=== PATIENT | male | born 1930 | race Caucasian/White ===

== ENCOUNTER → 2017-03-05 | Outpatient (CLI) | payer OTHER ==
[~2017-03-05] MED LIST: ALLERGY10 M2 PO; APAP500 PO; BYSTOLIC10 MG PO; CARDIZEM CD120 MG PO; CENTRUM SILVER1 EAC4 PO; CIALIS20 MG PO; COQ-10100 MG PO; COSAMIN DS CAP1 EAC1 PO; COUMADIN 5 MG TA5 MG PO; DEXILANT60 MG PO; FAMOTIDINE 20 M20 MG PO; FISH OIL 1,001000 M1 PO; HYDROCHLOROTHIA25 M1 PO; HYDROCODON-ACE1 EAC7 PO; IBUPROFEN 200200 M1 PO; JUVENON PO; LANOXIN 0.250.25 M1 PO; LORTAB 5-500 T1 EAC1 PO; MAGNESIUM400 MG PO; MOM PO; OXYCODONE-ACET1 EACH PO; PERCOCET 5-3251 EACH PO; POTASSIUM20 PO; RESTORIL15 MG PO; SINGULAIR 10 MG10 M1 PO; VALIUM5 MG PO; VITAMIN D1000 UNI1 PO
== END ==
LOC: CAT 10:07
DX: C34.12 Malignant neoplasm of upper lobe, left bronchus or lung (principal); Z90.2 Acquired absence of lung [part of]

== ENCOUNTER → 2018-04-08 | Outpatient (CLI) | payer OTHER ==
--- NOTE | 2018-04-11 09:28 | EXE ---
[facility] [email or web address] [address] STRESS ECHOCARDIOGRAM Name: EUFEMIA LEMOS Room #: REG Kevin#: [id number] Admission: 04/08/18 Attend Phys: Mio Ernandez, Discharge: Date of : 32 Date of Service: 04/11/18 0928 Report #: [id number] THIS REPORT FOR: //name// APPROVED REPORT Study performed: 04/08/2018 13:31:12 Exam: Stress Echocardiogram Indication: History of Afib Patient Location: Out-Patient Stress Nurse: Deena Evans RN Status: routine Ht: 5 ft 6 in HR: 51 bpm BP: 128/84 mmHg Rhythm: NSR Medical History Medical History: Atrial Fibrillation Medications: Listed on worksheet Allergies: No known drug allergies Cardiac Risk Factors: HTN, Hyperlipidemia Procedure The patient underwent an Exercise Stress Test using the Sacha Protocol. Blood pressure, heart rate, and EKG were monitored. An Echocardiogram was performed by instrument and control technician in four stages in quad fashion. At peak stress, four selected images were obtained and placed side by side with resting images for comparison. Stress Test Details Stress Test: Exercise stress testing was performed using a Sacha protocol. HR Resting HR: 51 bpm Max Heart Rate (APMHR): 134 bpm Max HR Achieved: 139 bpm Target HR (85% APMHR): 113 bpm % of APMHR: 103 Recovery HR: 61 bpm HR response to stress: Normal HR response to stress BP Resting BP: 128/84 mmHg [facility] [address] [place] [address] STRESS ECHOCARDIOGRAM Name: EUFEMIA LEMOS Room #: [facility]#: [id number] Admission: 04/08/18 Attend Phys: Mio Ernandez, Discharge: Date of : 32 Date of Service: 04/11/18927 Report #: [id number] Max BP: 190/102 mmHg Recovery BP: 128/80 mmHg BP response to stress: Normal blood pressure response to stress. ECG Clinical Reason for Termination: moderate fatigue, protocol completed Stress Symptoms: Dyspnea Exercise duration: 5 min 22 sec Exercise capacity: 7.20 METs Pre-Stress Echo The resting Echocardiogram showed normal left ventricular contractility with an estimated Ejection Fraction of about 55%. Mild mitral and aortic regurgitation noted. Post-Stress Echo The stress Echocardiogram showed normal left ventricular contractility with an estimated Ejection Fraction of about 60-65%. Conclusion Clinical Response: Non-ischemic Exercise Capacity: Average Stress ECG Response: Non-ischemic Stress Echo Images: Non-ischemic Other Information Study Quality: Adequate/lots of lung artifact pre and post <ELECTRONICALLY SIGNED> By: Mio Ernandez MD, FACC 04/11/1828 7 7 Mio Ernandez MD, FACC /INF
== END ==
LOC: CV 09:52
DX: I10 Essential (primary) hypertension (principal); I48.0 Paroxysmal atrial fibrillation; R06.09 Other forms of dyspnea

== ENCOUNTER → 2018-09-16 | Outpatient (CLI) | payer OTHER ==
[~2018-09-16] VITALS: Ht 162.6 cm; Wt 65.3 kg
[~2018-09-16] MED LIST changes: +CHLORTHALIDONE25 MG PO; +CRESTOR5 MG PO; +LOSARTAN POTAS100 MG PO; +RESTASIS1 EACH OPHTHALMIC
--- NOTE | 2018-09-17 10:22 | P ---
[facility] [place] [address] PROCEDURE REPORT Name: EUFEMIA LEMOS Room #: REG ZANDER Brown#: [id number] Admission: 09/16/18 ������������������ Attend Phys: Vincent Haque Discharge: ������������������ Date of : 32 Report #: [id number] THIS REPORT FOR: //name// CC: Iker Miles DATE OF SERVICE: 09/16/2018 PROCEDURE PERFORMED: Upper endoscopy with biopsies. HISTORY OF PRESENT ILLNESS: The patient is an 88-year-old male with a history of reflux, previously was taking Tums on a p.r.n. basis, took 2 weeks of omeprazole, which was helpful, stopped taking PPI therapy approximately 10 days ago. He has had a previous history of upper endoscopy and biopsies were H. pylori positive. He was treated in the past. He denies any dysphagia. No nausea or vomiting. He does report some mild midepigastric abdominal discomfort. Plan is for EGD. DESCRIPTION OF PROCEDURE: The risks and benefits of the procedure were explained to the patient, those risks including but not limited to bleeding, perforation and the risk of sedation. He understood these risks and gave informed consent. Sedation was given using propofol per Anesthesia. Next, using a standard Olympus upper endoscope, the scope was placed in the patient's mouth and advanced under direct vision through the esophagus, stomach and into the second portion of the duodenum. The larynx was normal in appearance. The upper and mid esophagus was normal. In the distal esophagus, grade A erosive esophagitis was noted and a possible short segment Jimenez's was noted. Biopsies were obtained. Upon entering the stomach, a small hiatal hernia was noted. The gastric fundus was normal. A mild gastritis was noted in the gastric body. Biopsies were obtained. No evidence of ulcerations or erosions. The gastric antrum and pylorus were normal. The duodenal bulb, first and second portion were all normal. The scope was then withdrawn and the procedure terminated. The patient tolerated the procedure well. IMPRESSION: 1. Grade A erosive esophagitis. 2. 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 3. Mild gastritis. 4. Small hiatal hernia. RECOMMENDATIONS: 1. Await biopsy results. 2. We would recommend daily PPI therapy long-term. [address] [address] PROCEDURE REPORT Name: EUFEMIA LEMOS Room #: REG ZANDER Brown#: [id number] Admission: 09/16/18 ������������������ Attend Phys: Vincent Haque Discharge: ������������������ Date of : 32 Report #: [id number] Thank you for allowing me to participate in his care. ��������������������������������������������� <ELECTRONICALLY SIGNED> ���������������������������������������� By: Vincent Miles MD ��������������������������������������������� 09/17/18 1022 0945 1041 Vincent Miles MD /nt
--- NOTE | 2018-09-19 16:05 | PATH ---
[facility] [address] [place] [address] PATHOLOGY RPT PROCEDURE Name: OREN FABIAN Room #: REG ZANDER Vernon.#: [id number] ������������������ Admission: 09/16/18 ������������������ Date of : 32 Discharge: Report #: [id number] Path Case #: [id number] [facility] Accession Number: [id number] . 01 Material submitted: . PART A: stomach - BX OF GASTRIC, PREVIOUS HX OF H. PYLORI PART B: esophagus - BX OF DISTAL ESOPHAGUS R/O BARRETTS. Modifiers: distal . 01 Clinical history: . Pre-OP DX: Previous Hx H. pylori Post-OP DX: Reflux . 02 Diagnosis: A. Gastric mucosa, gastric, rule out H. 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 - Negative for atrophy or dysplasia. - Negative for Helicobacter pylori (properly controlled immunohistochemical stain performed). . B. Gastroesophageal mucosa, distal esophagus, rule out Jimenez's, endoscopic biopsy: - Gastric cardia-type mucosa with moderate chronic inflammation and reactive changes. - Negative for intestinal metaplasia or dysplasia. - Squamous mucosa with mild esophagitis. (IUV:pit 09/19/2018) QTP/09/19/2018 . 02 Electronically signed: . Britany Benoit MD, Pathologist NPI- [id number] . 01 Gross description: . A. Received in formalin labeled "Oren Fabian, BX of gastric-previous Hx of H. pylori," are 4 segments of noel soft tissue measuring 1.3 x 0.7 x 0.2 cm in aggregate dimensions and ranging from 0.3 to 0.6 cm in maximum dimension. The specimen is submitted entirely in cassette A1. . B. Received in formalin labeled "Oren Fabian, distal esophagus, rule out Jimenez's," are 2 segments of noel soft tissue measuring 0.7 x 0.2 x 0.1 cm in aggregate dimensions and ranging from 0.3 to 0.4 cm in maximum dimension. The specimen is submitted entirely in cassette B1. (TSD; 09/16/2018) TOB/TOB . 02 Pathologist provided ICD-10: K31.9, K29.50, K20.9 [place] [address] PATHOLOGY RPT PROCEDURE Name: OREN FABIAN Room #: REG CL Kevin#: [id number] ������������������ Admission: 09/16/18 ������������������ Date of : 32 Discharge: Report #: [id number] Path Case #: [id number] . 02 CPT . 704209, [id number], [id number] Specimen Comment: A courtesy copy of this report has been sent to Specimen Comment: [phone], . Specimen Comment: Report sent to / DR SCHMITT Performed at: [address] [facility], [place] [id number] MD Cruz Parks MD Phone: [phone] Performed at: [address] [facility] [id number] MD Britany Benoit MD Phone: [phone]
== END | disposition home or self-care (01) ==
LOC: GI 08:10
DX: K29.50 Unspecified chronic gastritis without bleeding (principal); K21.0 Gastro-esophageal reflux disease with esophagitis; K31.9 Disease of stomach and duodenum, unspecified; K22.10 Ulcer of esophagus without bleeding; K44.9 Diaphragmatic hernia without obstruction or gangrene; I10 Essential (primary) hypertension; E78.5 Hyperlipidemia, unspecified; Z98.42 Cataract extraction status, left eye; Z98.890 Other specified postprocedural states; Z79.899 Other long term (current) drug therapy
CPT/HCPCS: 62110; 62900

== ENCOUNTER → 2019-09-13 | Outpatient (CLI) | payer OTHER | LOC: SJCVC 14:20 | PROVIDERS: ATTEND Internal Medicine Cardiovascular Disease | DX: I48.0 Paroxysmal atrial fibrillation (principal); E78.00 Pure hypercholesterolemia, unspecified; I10 Essential (primary) hypertension; I38 Endocarditis, valve unspecified; E78.5 Hyperlipidemia, unspecified; M19.90 Unspecified osteoarthritis, unspecified site; Z79.899 Other long term (current) drug therapy; Z82.49 Family history of ischemic heart disease and other diseases of the circulatory system ==

== ENCOUNTER → 2020-01-23 | Outpatient (CLI) | payer OTHER | LOC: SJCVCIMAG 10:25 | PROVIDERS: ATTEND Internal Medicine Cardiovascular Disease | DX: I08.2 Rheumatic disorders of both aortic and tricuspid valves (principal); R94.31 Abnormal electrocardiogram [ECG] [EKG]; R00.0 Tachycardia, unspecified; I44.1 Atrioventricular block, second degree; I11.9 Hypertensive heart disease without heart failure; E78.00 Pure hypercholesterolemia, unspecified; I48.0 Paroxysmal atrial fibrillation; Z79.899 Other long term (current) drug therapy ==

== ENCOUNTER → 2020-08-15 | Outpatient (CLI) | payer OTHER | LOC: SJCVC 13:43 | PROVIDERS: ATTEND Internal Medicine Cardiovascular Disease | DX: I49.1 Atrial premature depolarization (principal); I48.0 Paroxysmal atrial fibrillation; I10 Essential (primary) hypertension; E78.00 Pure hypercholesterolemia, unspecified; I77.810 Thoracic aortic ectasia; E55.9 Vitamin D deficiency, unspecified; D41.4 Neoplasm of uncertain behavior of bladder; E78.5 Hyperlipidemia, unspecified; M19.90 Unspecified osteoarthritis, unspecified site; Z79.899 Other long term (current) drug therapy; Z82.49 Family history of ischemic heart disease and other diseases of the circulatory system ==

== ENCOUNTER → 2020-08-16 | Outpatient (CLI) | payer OTHER | LOC: SJCVCIMAG 06:43 | PROVIDERS: ATTEND Internal Medicine Cardiovascular Disease | DX: I35.1 Nonrheumatic aortic (valve) insufficiency (principal); I11.9 Hypertensive heart disease without heart failure; I48.0 Paroxysmal atrial fibrillation; E78.00 Pure hypercholesterolemia, unspecified; E78.5 Hyperlipidemia, unspecified; Z79.899 Other long term (current) drug therapy; Z72.89 Other problems related to lifestyle ==

== ENCOUNTER → 2021-03-31 | Outpatient (CLI) | payer OTHER | LOC: SJCVC 10:59 | PROVIDERS: ATTEND Internal Medicine Cardiovascular Disease | DX: R94.31 Abnormal electrocardiogram [ECG] [EKG] (principal); I10 Essential (primary) hypertension; I77.810 Thoracic aortic ectasia; R00.2 Palpitations; I48.0 Paroxysmal atrial fibrillation; E78.00 Pure hypercholesterolemia, unspecified; K21.9 Gastro-esophageal reflux disease without esophagitis; E78.5 Hyperlipidemia, unspecified; M81.0 Age-related osteoporosis without current pathological fracture; M47.812 Spondylosis without myelopathy or radiculopathy, cervical region; Z98.890 Other specified postprocedural states; Z79.899 Other long term (current) drug therapy; Z72.89 Other problems related to lifestyle ==